=== PATIENT | male | born 1990 | race Caucasian/White ===

== ENCOUNTER 2018-10-10 04:01 | Emergency (ER) | payer MEDICAID ==
[~2018-10-10] VITALS: Ht 177.8 cm; Wt 117.9 kg
[2018-10-10 04:15] VITALS: BP_SYST 137
--- NOTE | 2018-10-10 04:15 | NUR ---
Pt wheeled to bed hallway for evaluation
--- NOTE | 2018-10-10 04:15 | NUR ---
Pt c/o Left ankle pain s/p playing basket ball at 1800 yesterday. Pt states "I think I rolled my ankle or sprained it." No obvious deformity noted, mild swelling, able to dorsi-flex left foot and wiggle toes.
--- NOTE | 2018-10-10 04:37 | NUR ---
X-ray at bedside.
--- NOTE | 2018-10-10 04:50 | NUR ---
Dr. Burleson at bedside.
[2018-10-10] MEDS ORDERED: KETOROLAC TROMETHAMINE 60 MG/2 ML VIAL IM ONE (05:00)
--- NOTE | 2018-10-10 06:00 | NUR ---
Pt verbalizes improvement in pain. No needs verbalized at this time.
[2018-10-10 06:55] VITALS: BP_SYST 130
--- NOTE | 2018-10-10 06:55 | NUR ---
Patient given written and verbal discharge instructions and verbalizes understanding. ER MD discussed with patient the results and treatment provided. Patient in stable condition. ID arm band removed. Rx of Ibuprofen, [place] given. Patient educated on pain management and to follow up with PMD. Pain Scale 1/10. Opportunity for questions provided and answered. Medication side effect fact sheet provided.
== END 2018-10-10 06:55 | disposition home or self-care (01) ==
LOC: SED 04:01
DX: S93.402A Sprain of unspecified ligament of left ankle, initial encounter (principal); X50.9XXA Other and unspecified overexertion or strenuous movements or postures, initial encounter; Y93.67 Activity, basketball; Y92.89 Other specified places as the place of occurrence of the external cause; Y99.8 Other external cause status
CPT/HCPCS: 73590; 73610; 73630; 96372; 99284; J1885